=== PATIENT | male | born 1965 | race Caucasian/White ===

== ENCOUNTER → 2018-11-27 | Outpatient (CLI) | payer OTHER ==
--- NOTE | 2018-11-27 14:58 | KCIC ---
Examination: MRI of the left shoulder without contrast HISTORY: History of left shoulder pain COMPARISON: None available TECHNIQUE: Multiplanar, multisequence MR imaging of the left shoulder were performed without contrast. FINDINGS: The long head of the biceps tendon within the bicipital groove. The attachment of the long head the biceps tendon to the superior labral anchor grossly appears intact. The attachment of the subscapularis tendon, infraspinatus, teres minor tendon grossly appears intact. There is increased T2 signal identified in the anterior fibers of the supraspinatus tendon likely tendinosis. There is small amount of fluid identified in the subacromial subdeltoid bursa. The visualized labrum grossly appears unremarkable. The muscle bulk grossly appears unremarkable. The acromion is type II. Mild degenerative changes identified in the acromioclavicular joint and the glenohumeral joint. Fat is present within the rotator interval IMPRESSION: 1. Moderate tendinosis of the supraspinatus tendon with small amount of fluid identified in several, subdeltoid bursa. A tiny focus of full thickness tear is not completely excluded given fluid in the subacromial subdeltoid bursa. If suspicious consider MR arthrogram for further evaluation. Electronically signed by: Neeraj Gambino MD (11/27/2018 2:55 PM) [id number]
== END | disposition home or self-care (01) ==
LOC: KCIC MRI 13:11
DX: S46.812A Strain of other muscles, fascia and tendons at shoulder and upper arm level, left arm, initial encounter (principal); M19.012 Primary osteoarthritis, left shoulder; M75.82 Other shoulder lesions, left shoulder; Z90.49 Acquired absence of other specified parts of digestive tract; X58.XXXA Exposure to other specified factors, initial encounter; Y93.89 Activity, other specified; Y92.89 Other specified places as the place of occurrence of the external cause; Y99.8 Other external cause status
CPT/HCPCS: 73221